=== PATIENT | female | born 1985 | race African-American/Black ===

== ENCOUNTER 2017-05-25 22:16 | Observation (INO) | payer OTHER ==
[~2017-05-25] VITALS: Ht 178 cm; Wt 117.0 kg
[2017-05-25] MEDS: LACTATED RINGERS 1,000 ML IV SCH (22:45)
[2017-05-25] MEDS ORDERED: METH250T11 PO (23:58)
[2017-05-26] MEDS: LACTATED RINGERS 1,000 ML IV SCH ×2 (00:27→03:00)
[2017-05-26] MEDS: ACETAMINOPHEN 500MG TABLET PO PRN ×2 (01:25→07:36)
[2017-05-26 02:18] LABS: CLARITY URINE CLOUDY (CLEAR); COLOR URINE ORANGE (YELLOW); KETONES URINE 4+ (NEGATIVE); LEUKOCYTE ESTERASE URINE 2+ (NEGATIVE); NITRITE URINE POSITIVE (NEGATIVE); OCCULT BLOOD URINE NEGATIVE (NEGATIVE); PH URINE 5.5 (4.5-8.0); PROTEIN URINE 2+ (NEGATIVE); SPECIFIC GRAVITY URINE 1.034 (1.005-1.030)
[2017-05-26] MEDS ORDERED: CEFAZOLIN 2,000 MG in DEXT 5% WATER 100 ML IV NR (08:30)
[2017-05-26] MEDS ORDERED: METHYLDOPA 250MG TABLET PO SCH (09:00)
== END 2017-05-26 11:52 | disposition home or self-care (01) ==
LOC: L&D 22:16 → EDBD 22:16
PROVIDERS: ADMIT Obstetrics & Gynecology; ATTEND Obstetrics & Gynecology
DX: O46.93 Antepartum hemorrhage, unspecified, third trimester (principal); O26.893 Other specified pregnancy related conditions, third trimester; R10.9 Unspecified abdominal pain; M54.5 Low back pain; Z3A.36 36 weeks gestation of pregnancy; Z79.899 Other long term (current) drug therapy
CPT/HCPCS: 76805; 76818; 81001; 82962; 96361; 96365; 99281; G0378; J0690; J7120; J7060